=== PATIENT | female | born 1930 | race Caucasian/White ===

== ENCOUNTER 2017-08-31 10:42 | Inpatient (IN) | payer MEDICARE ==
[2017-08-31 11:41] LABS: BASO # 0.1 10^3/uL (0.0-0.2); EOS # 0.2 10^3/uL (0.0-0.50); EOS % 2.3 % (0.0-3.0); HEMATOCRIT 40.4 % (36.0-47.0); HEMOGLOBIN 12.9 g/dl (12.0-15.5); IMMATURE GRANULOCYTE % 0.3 % (0-3.0); LYMPH # 2.2 10^3/uL (1.5-4.5); LYMPH % 31.1 % (24.0-44.0); MEAN CORPUSCULAR HGB CONC 31.9 g/dl (32.0-36.5); MEAN CORPUSCULAR VOLUME 97.1 fl (80.0-96.0); MONO # 0.7 10^3/uL (0.0-0.8); MONO % 10.5 % (0.0-5.0); NEUTROPHILS # 3.9 10^3/uL (1.8-7.7); NEUTROPHILS % 54.8 % (36.0-66.0); PLATELET COUNT, AUTOMATED 214 10^3/uL (150-450); RED BLOOD COUNT 4.16 10^6/uL (4.00-5.40); RED CELL DISTRIBUTION WIDTH 13.9 % (11.5-14.5)
[2017-08-31 11:54] LABS: ALBUMIN 3.4 GM/DL (3.2-5.2); ALKALINE PHOSPHATASE 64 U/L (45-117); ALT/SGPT 40 U/L (12-78); ANION GAP 12 MEQ/L (8-16); AST/SGOT 48 U/L (7-37); BILIRUBIN,DIRECT 0.3 MG/DL (0.0-0.2); BILIRUBIN,TOTAL 1.2 MG/DL (0.2-1.0); BLOOD UREA NITROGEN 34 MG/DL (7-18); CALCIUM LEVEL 9.1 MG/DL (8.8-10.2); CARBON DIOXIDE LEVEL 20 MEQ/L (21-32); CHLORIDE LEVEL 106 MEQ/L (98-107); CK-MB VALUE MASS 3.8 NG/ML (<3.6); CPK CREATINE PHOSPHOKINASE 100 U/L (26-192); GLOMERULAR FILTRATION RATE 26.7 (>32); GLUCOSE, FASTING 166 MG/DL (70-100); POTASSIUM SERUM 4.6 MEQ/L (3.5-5.1); SODIUM LEVEL 138 MEQ/L (136-145); TOTAL PROTEIN 6.8 GM/DL (6.4-8.2); TROPONIN I 0.09 NG/ML (< 0.10)
[2017-08-31 12:07] LABS: NT-PRO BNP 57070 PG/ML (<450)
[2017-08-31] MEDS: FUROSEMIDE 40 MG/4 ML VIAL (J1940) IV ×2 (12:07→18:01)
[2017-08-31 12:22] LABS: KETONE, URINE AUTO RFX TRACE mg/dL (NEGATIVE); MUCUS, URINE RFX SMALL (NEGATIVE); NITRITE, URINE AUTO RFX NEGATIVE (NEGATIVE); RBC, URINE AUTO RFX 25 /HPF (0-3); SPECIFIC GRAVITY UR AUTO RFX 1.018 (1.002-1.035); SQUAM EPITHELIAL CELL UR AURFX 15 /HPF (0-6)
[2017-08-31 12:23] LABS: LEUKOCYTE ESTERASE UR AUTO RFX 3+ (NEGATIVE); WBC, URINE AUTO RFX TNTC /HPF (0-3)
[2017-08-31] MEDS ORDERED: ONDANSETRON 4MG/2ML VIAL (J2405) IV (13:30)
[2017-08-31] MEDS: cefTRIAXone SOD 1 GM in D5W MINI-BAG PLUS 50 ML IV (14:36)
[2017-08-31] MEDS: ASPIRIN 325 MG TAB PO (15:06)
[2017-08-31 18:18] LABS: CPK CREATINE PHOSPHOKINASE 104 U/L (26-192); TROPONIN I 0.15 NG/ML (< 0.10)
[2017-08-31 18:19] LABS: CK-MB VALUE MASS 4.3 NG/ML (<3.6); MB/CK RELATIVE INDEX 4.13 (< OR =4)
[2017-08-31 18:26] LABS: OSMOLALITY URINE 339 MOSM/KG (500-800)
[2017-08-31 18:42] LABS: CHLORIDE,RANDOM URINE 142 MEQ/L; CREATININE,RANDOM URINE 46.5 MG/DL; POTASSIUM RANDOM URINE 40.3 MEQ/L; SODIUM,RANDOM URINE 103 MEQ/L; TOTAL PROTEIN,RANDOM URINE 7.4 MG/DL (0.0-12.0)
[2017-08-31] MEDS: HEPARIN SOD (PORCINE) 5000 UNITS/ML VIAL SC (20:39)
[2017-08-31] MEDS: SENOKOT S TAB PO (20:40)
[2017-08-31] MEDS: ATENOLOL 25 MG TAB PO (20:40)
[2017-08-31] MEDS: ATORVASTATIN 20 MG TAB PO (20:40)
[2017-09-01 00:11] LABS: CPK CREATINE PHOSPHOKINASE 134 U/L (26-192); TROPONIN I 0.19 NG/ML (< 0.10)
[2017-09-01 00:12] LABS: CK-MB VALUE MASS 5.1 NG/ML (<3.6)
[2017-09-01] MEDS: FUROSEMIDE 40 MG/4 ML VIAL (J1940) IV ×3 (00:17→11:33)
[2017-09-01 05:36] LABS: HEMATOCRIT 36.6 % (36.0-47.0); HEMOGLOBIN 11.7 g/dl (12.0-15.5); MEAN CORPUSCULAR HEMOGLOBIN 30.1 pg (27.0-33.0); MEAN CORPUSCULAR VOLUME 94.1 fl (80.0-96.0); PLATELET COUNT, AUTOMATED 163 10^3/uL (150-450); RED BLOOD COUNT 3.89 10^6/uL (4.00-5.40); RED CELL DISTRIBUTION WIDTH 13.7 % (11.5-14.5); WHITE BLOOD COUNT 6.2 10^3/uL (4.0-10.0)
[2017-09-01 05:50] LABS: ALBUMIN 3.1 GM/DL (3.2-5.2); ALBUMIN/GLOBULIN RATIO 0.91 (1.00-1.93); ALKALINE PHOSPHATASE 56 U/L (45-117); ALT/SGPT 34 U/L (12-78); ANION GAP 8 MEQ/L (8-16); AST/SGOT 36 U/L (7-37); BILIRUBIN,TOTAL 0.8 MG/DL (0.2-1.0); BLOOD UREA NITROGEN 42 MG/DL (7-18); CARBON DIOXIDE LEVEL 26 MEQ/L (21-32); CHLORIDE LEVEL 106 MEQ/L (98-107); GLOMERULAR FILTRATION RATE 25.1 (>32); GLUCOSE, FASTING 101 MG/DL (70-100); MAGNESIUM LEVEL 1.8 MG/DL (1.8-2.4); POTASSIUM SERUM 4.7 MEQ/L (3.5-5.1); SODIUM LEVEL 140 MEQ/L (136-145); TOTAL PROTEIN 6.5 GM/DL (6.4-8.2)
[2017-09-01 08:45] LABS: CPK CREATINE PHOSPHOKINASE 137 U/L (26-192)
[2017-09-01 08:46] LABS: CK-MB VALUE MASS 5.4 NG/ML (<3.6); MB/CK RELATIVE INDEX 3.94 (< OR =4)
[2017-09-01] MEDS: ASPIRIN 81 MG ENTERIC TAB PO (09:06)
[2017-09-01] MEDS: HEPARIN SOD (PORCINE) 5000 UNITS/ML VIAL SC (09:07)
[2017-09-01] MEDS: SENOKOT S TAB PO (09:26)
== END 2017-09-01 12:59 | disposition short-term general hospital (02) | DRG 306 ==
LOC: M ED 10:42 → M ED INP 13:20 → M PCU 16:24
DX: I35.2 Nonrheumatic aortic (valve) stenosis with insufficiency (principal); I50.23 Acute on chronic systolic (congestive) heart failure; N17.9 Acute kidney failure, unspecified; E87.2 Acidosis; N39.0 Urinary tract infection, site not specified; I11.0 Hypertensive heart disease with heart failure; Z79.899 Other long term (current) drug therapy; Z88.0 Allergy status to penicillin; Z91.018 Allergy to other foods; Z91.012 Allergy to eggs; Z91.010 Allergy to peanuts; Z79.82 Long term (current) use of aspirin

== ENCOUNTER → 2018-02-03 | Outpatient (REF) | payer MEDICARE ==
[2018-02-07 00:07] LABS: LEVETIRACETAM (KEPPRA) 40.3 ug/mL (10.0-40.0)
== END ==
LOC: M LAB REF 17:39
DX: G40.309 Generalized idiopathic epilepsy and epileptic syndromes, not intractable, without status epilepticus (principal)
CPT/HCPCS: 80180

== ENCOUNTER → 2018-10-18 | Outpatient (REF) | payer MEDICARE ==
[~2018-10-18] MED LIST: ATEN25TA PO; BENA20TA8 PO; CALTTAB5 PO
== END ==
LOC: M LAB REF 12:50
PROVIDERS: ATTEND Internal Medicine
DX: G40.309 Generalized idiopathic epilepsy and epileptic syndromes, not intractable, without status epilepticus (principal)

== ENCOUNTER → 2019-04-18 | Outpatient (REF) | payer MEDICARE | LOC: M LAB REF 18:17 | PROVIDERS: ATTEND Internal Medicine | DX: G40.309 Generalized idiopathic epilepsy and epileptic syndromes, not intractable, without status epilepticus (principal) ==

== ENCOUNTER → 2019-11-13 | Outpatient (REF) | payer MEDICARE | LOC: M LAB REF 15:59 | PROVIDERS: ATTEND Internal Medicine | DX: G40.309 Generalized idiopathic epilepsy and epileptic syndromes, not intractable, without status epilepticus (principal) ==

== ENCOUNTER → 2020-05-19 | Outpatient (REF) | payer MEDICARE | LOC: M LAB REF 16:31 | PROVIDERS: ATTEND Internal Medicine | DX: G40.309 Generalized idiopathic epilepsy and epileptic syndromes, not intractable, without status epilepticus (principal) ==